=== PATIENT | female | born 1990 | race Caucasian/White ===

== ENCOUNTER 2022-01-03 03:55 | Emergency (ER) | payer OTHER ==
--- NOTE | 2022-01-03 04:19 | XR ---
EXAMINATION TYPE: XR chest 2V DATE OF EXAM: 01/03/2022 COMPARISON: NONE HISTORY: Rib pain TECHNIQUE: 2 views FINDINGS: Heart is normal. Lungs are clear of consolidation. There are no hilar masses. Costophrenic angles are clear. The bony thorax is intact. The pulmonary vascularity is normal. IMPRESSION: No active cardiopulmonary disease. Normal heart.
--- NOTE | 2022-01-03 04:26 | ED ---
SOB HPI - General Chief Complaint: Shortness of Breath Stated Complaint: REGINE Time Seen by Provider: 01/03/22 04:14 Source: patient, family, RN notes reviewed, old records reviewed Mode of arrival: ambulatory Limitations: no limitations - History of Present Illness Initial Comments: This is a 31-year-old female to the emergency department for evaluation today. Patient does suffer from bipolar depression coming in for right-sided chest pain right-sided abdominal pain patient states she's been lying in bed for an entire week secondary to significant life stressors although denies homicidal or suicidal thoughts no drug abuse and has been taking medications. Patient states she woke up slightly with sleep severe right-sided right rib pain and that's she is now presenting for pain shortness of breath MD Complaint: shortness of breath, pain with inspiration, anxiety -: hour(s) Severity: moderate Severity scale (1-10): 7 Quality: sharp, stabbing Consistency: constant Improves With: nothing Worsens With: nothing Context: anxiety Associated Symptoms: chest pain, abdominal pain Treatments Prior to Arrival: none - Related Data Allergies Allergy/AdvReac Type Severity Reaction Status Date / Time minocycline Allergy Rash/Hives Verified 01/03/22 04:03 Review of Systems ROS Statement: Those systems with pertinent positive or pertinent negative responses have been documented in the HPI. ROS Other: All systems not noted in ROS Statement are negative. Past Medical History Additional Past Medical History / Comment(s): bipolar OCD History of Any Multi-Drug Resistant Organisms: None Reported Past Surgical History: No Surgical Hx Reported Past Psychological History: Anxiety, Bipolar, Depression Smoking Status: Never smoker Past Alcohol Use History: Occasional Past Drug Use History: None Reported General Exam Limitations: no limitations General appearance: alert, in no apparent distress Head exam: Present: atraumatic, normocephalic, normal inspection Eye exam: Present: normal appearance, PERRL, EOMI. Absent: scleral icterus, conjunctival injection, periorbital swelling ENT exam: Present: normal exam, mucous membranes moist Neck exam: Present: normal inspection. Absent: tenderness, meningismus, lymphadenopathy Respiratory exam: Present: normal lung sounds bilaterally. Absent: respiratory distress, wheezes, rales, rhonchi, stridor Cardiovascular Exam: Present: regular rate, normal rhythm, normal heart sounds. Absent: systolic murmur, diastolic murmur, rubs, gallop, clicks GI/Abdominal exam: Present: soft, tenderness (Right-sided abdominal pain), normal bowel sounds. Absent: distended, guarding, rebound, rigid Extremities exam: Present: normal inspection, full ROM, normal capillary refill. Absent: tenderness, pedal edema, joint swelling, calf tenderness Back exam: Present: normal inspection Neurological exam: Present: alert, oriented X3, CN II-XII intact Psychiatric exam: Present: normal affect, normal mood Skin exam: Present: warm, dry, intact, normal color. Absent: rash Course Vital Signs 01/03/22 03:59 Temperature 98.4 F Pulse Rate 107 H Respiratory 24 Rate Blood Pressure 136/84 O2 Sat by Pulse 100 Oximetry - Reevaluation(s) Reevaluation #1: 01/03/22 05:42 Medical record is reviewed Reevaluation #2: 01/03/22 06:25 Patient's pain is improved Reevaluation #3: 01/03/22 06:25 Patient informed of results and questions answered Medical Decision Making - Medical Decision Making 31 female to the emergency department for evaluation patient presents today for evaluation of right-sided chest pain rib pain. Patient presents with right- sided rib pain shortness of breath positive for pneumonia patient can be discharged home - Lab Data Result diagrams: 01/03/22 05:20 01/03/22 05:20 Lab Results 01/03/22 01/03/22 01/03/22 Range/Units 05:20 05:20 05:20 WBC 11.3 H (3.8-10.6) k/uL RBC 4.13 (3.80-5.40) m/uL Hgb 14.0 (11.4-16.0) gm/dL Hct 41.1 (34.0-46.0) % MCV 99.5 (80.0-100.0) fL MCH 34.0 (25.0-35.0) pg MCHC 34.1 (31.0-37.0) g/dL RDW 12.7 (11.5-15.5) % Plt Count 270 (150-450) k/uL MPV 7.0 Neutrophils % 80 % Lymphocytes % 12 % Monocytes % 6 % Eosinophils % 1 % Basophils % 0 % Neutrophils # 9.0 H (1.3-7.7) k/uL Lymphocytes # 1.4 (1.0-4.8) k/uL Monocytes # 0.6 (0-1.0) k/uL Eosinophils # 0.1 (0-0.7) k/uL Basophils # 0.0 (0-0.2) k/uL Sodium 138 (137-145) mmol/L Potassium 3.8 (3.5-5.1) mmol/L Chloride 100 (98-107) mmol/L Carbon Dioxide 28 (22-30) mmol/L Anion Gap 10 mmol/L BUN 23 H (7-17) mg/dL Creatinine 0.82 (0.52-1.04) mg/dL Est GFR (CKD-EPI)AfAm >90 (>60 ml/min/1.73 sqM) Est GFR (CKD-EPI)NonAf >90 (>60 ml/min/1.73 sqM) Glucose 66 L (74-99) mg/dL Calcium 8.8 (8.4-10.2) mg/dL Total Bilirubin 0.2 (0.2-1.3) mg/dL AST 22 (14-36) U/L ALT 16 (4-34) U/L Alkaline Phosphatase 98 (38-126) U/L Troponin I <0.012 (0.000-0.034) ng/mL Total Protein 6.3 (6.3-8.2) g/dL Albumin 3.8 (3.5-5.0) g/dL Amylase 74 (30-110) U/L Lipase 237 (23-300) U/L - Radiology Data Radiology results: report reviewed (CTA chest abdomen pelvis patient does have right-sided pneumonia), image reviewed Disposition Clinical Impression: Right lower lobe pneumonia Disposition: HOME SELF-CARE Condition: Good Instructions (If sedation given, give patient instructions): Aspiration Pneumonia (DC), Community Acquired Pneumonia (ED) Is patient prescribed a controlled substance at d/c from ED?: No Referrals: None,Stated [Primary Care Provider] - 1-2 days Time of Disposition: 06:30
[2022-01-03] MEDS ORDERED: SODIUM CHLORIDE 0.9% 1,000 ML IV STA (05:13)
[2022-01-03] MEDS ORDERED: KETOROLAC 15 MG/ML 1 ML VIAL IVP STA (05:13)
[2022-01-03] MEDS ORDERED: LORazepam 2 MG/ML INJ IV STA (05:14)
[2022-01-03 05:53] LABS: Basophils % (A) 0 %; Eosinophils # (A) 0.1 k/uL (0-0.7); Eosinophils % (A) 1 %; HCT 41.1 % (34.0-46.0); Lymphocytes # (A) 1.4 k/uL (1.0-4.8); Lymphocytes % (A) 12 %; MCHC 34.1 g/dL (31.0-37.0); MCV 99.5 fL (80.0-100.0); Monocytes # (A) 0.6 k/uL (0-1.0); Monocytes % (A) 6 %; Neutrophils % (A) 80 %; Platelet Count 270 k/uL (150-450); RBC 4.13 m/uL (3.80-5.40); RDW 12.7 % (11.5-15.5); WBC 11.3 k/uL (3.8-10.6)
[2022-01-03 06:06] LABS: ALT 16 U/L (4-34); AST 22 U/L (14-36); Albumin 3.8 g/dL (3.5-5.0); Alkaline Phosphatase 98 U/L (38-126); Anion Gap 10 mmol/L; Calcium 8.8 mg/dL (8.4-10.2); Carbon Dioxide 28 mmol/L (22-30); Chloride 100 mmol/L (98-107); Glucose 66 mg/dL (74-99); Lipase 237 U/L (23-300); Potassium 3.8 mmol/L (3.5-5.1); Sodium 138 mmol/L (137-145); Total Bilirubin 0.2 mg/dL (0.2-1.3)
[2022-01-03 06:07] LABS: Amylase 74 U/L (30-110); Total Protein 6.3 g/dL (6.3-8.2)
[2022-01-03 06:08] LABS: African American GFR (CKD) >90 (>60 ml/min/1.73 sqM); Blood Urea Nitrogen 23 mg/dL (7-17); Non-African American GFR(CKD) >90 (>60 ml/min/1.73 sqM)
--- NOTE | 2022-01-03 06:13 | CT ---
EXAMINATION TYPE: CT angio chest DATE OF EXAM: 01/03/2022 COMPARISON: None HISTORY: RUQ pain Chest pain CT DLP: mGycm Automated exposure control for dose reduction was used. CONTRAST: Performed with IV Contrast, patient injected with 100 mL of Isovue 370. There are Three-D postprocessed images. The lungs are clear of consolidation. There is slight increased interstitial density in the lungs. Th ere are subpleural minimal infiltrate in the posterior right lower lobe measuring 1 cm heart size is normal. No pericardial effusion. There are no hilar masses. There is no mediastinal adenopathy there is normal contrast opacification of the pulmonary arteries. No filling defect. IMPRESSION: No evidence of pulmonary embolism. Small subpleural infiltrates right lower lobe are likely inflammat ory. Normal heart.
--- NOTE | 2022-01-03 06:17 | CT ---
EXAMINATION TYPE: CT abdomen pelvis w con DATE OF EXAM: 01/03/2022 COMPARISON: None HISTORY: RUQ pain CT DLP: 803.4 mGycm Automated exposure control for dose reduction was used. CONTRAST: Performed with IV Contrast, patient injected with 100 mL of Isovue 370. Images obtained from the diaphragm to the floor the pelvis with the IV contrast. There is some minimal infiltrate or atelectasis at the posterior lung bases. Heart size is normal. No pericardial effusion. Liver spleen and stomach pancreas appear intact. Gallbladder is contracted. Th e bile ducts are nondilated. There is no adrenal mass. Kidneys show satisfactory contrast opacification. There is no hydronephrosi s. Ureters are not dilated. No retroperitoneal adenopathy. Bladder distends smoothly. Uterus is antev erted. No evidence of a pelvic mass. No free fluid in the pelvis. Exam limited by lack of any intesti nal contrast. Appendix is not seen. The lumbar vertebrae have normal alignment. Disc spaces are fairly normal. No compression fracture. T he posterior elements are intact. Bony pelvis intact. Hip joints are intact. There is no mesenteric e angeline. No ascites or free air. No sign of a bowel obstruction. IMPRESSION: Negative CT scan of the abdomen pelvis. Minimal subpleural infiltrates at the lung bases. Appendix no t well evaluated.
[2022-01-03] MEDS ORDERED: AZITHROMYCIN 500 MG TAB PO STA (06:24)
[2022-01-03] MEDS ORDERED: cefTRIAXone IN SWFI 1,000 MG/10 ML SYRINGE IVP STA (06:27)
[2022-01-03 06:43] VITALS: BP 127/77; PULSE 79; RESP 20; TEMP 98
== END 2022-01-03 06:46 | disposition home or self-care (01) ==
LOC: EC 03:55
DX: J18.1 Lobar pneumonia, unspecified organism (principal); Z88.1 Allergy status to other antibiotic agents
CPT/HCPCS: 36415; 80053; 80175; 82150; 83690; 84484; 85025; 71046; 71275; 74177; 99285; 96374; 96375; 96361; J2060; J0696; J1885; Q9967